=== PATIENT | male | born 1955 | race American Indian/Alaskan Native ===

== ENCOUNTER 2017-01-08 11:11 | Emergency (ER) | payer MEDICAID, MEDICARE ==
[2017-01-08 11:27] VITALS: BP 137/85
[2017-01-08] MEDS ORDERED: MOTRIN PO ONE (13:48)
[2017-01-08] MEDS ORDERED: TRIPLE ANTIBIOTIC TP ONE (13:50)
--- NOTE | 2017-01-09 12:17 | Emergency Department Report ---
Entered by DEEPALI RIOS, acting as scribe for CARMEL SROIANO NP. - General Chief Complaint: Extremity Injury, Lower Stated Complaint: LFT FOOT PAIN Source: patient Mode of arrival: Ambulatory Limitations: No Limitations - History of Present Illness Initial Comments: 61 year old male with no significant PMHx presents to the ED c/o a wound on he left plantar foot between his 3rd and 4th phalanges that began 2 months. Patient states that 2 months ago on a job site a natural gas pipe busted and his boot was submerged in water for the rest of the day. Later that night, he noticed a blister and "popped" it, which released fluid and blood. Patient states that he has been self treating his wound at home with no relief. Denies fever, chills, nausea, vomiting, loss of feeling, tingling, and numbness. Reports that he was recently checked by PCP for diabetes and had negative results. Last visit with PCP was last month and stated all normal lab values, including DM. Stated that he is healthy and is not d/x with any medical problems. Denied receiving tetanus shot during this visit. Onset/Timin -: month(s) Location: other (left plantar foot between 3rd and 4th phalanges) Extremity Location: Left: Foot (plantar between 3rd and 4th phalanges) Place: home Patient Tetanus UTD: No Associated Symptoms: pain (left plantar foot). denies: loss of feeling/numbness , nausea/vomiting, fever, other (chills, tingling) - Related Data Previous Rx's Medication Instructions Recorded Last Taken Type Cephalexin [Keflex] 500 mg PO Q12HR #10 cap 01/08/17 Unknown Rx Naproxen [Naprosyn TAB] 500 mg PO PRN PRN #15 tablet 01/08/17 Unknown Rx Allergies Allergy/AdvReac Type Severity Reaction Status Date / Time No Known Allergies Allergy Unverified 01/08/17 13:59 ED Review of Systems Comment: All other systems reviewed and negative Constitutional: denies: chills, fever, other (loss of feeling, tingling) Eyes: denies: eye pain, eye discharge, vision change ENT: denies: ear pain, throat pain Respiratory: denies: cough, orthopnea, shortness of breath, SOB with exertion Cardiovascular: denies: chest pain, palpitations, dyspnea on exertion, orthopnea Gastrointestinal: denies: nausea, vomiting Musculoskeletal: other (left foot pain). denies: back pain Skin: other (wound on left plantar foot between 3rd and 4th phalanges) Neurological: denies: headache, weakness, numbness Psychiatric: denies: anxiety, depression Hematological/Lymphatic: denies: easy bleeding, easy bruising ED Past Medical Hx - Past Medical History Previous Medical History?: No - Surgical History Past Surgical History?: No - Social History Smoking Status: Never Smoker Substance Use Type: None - Medications Home Medications: Home Medications Medication Instructions Recorded Confirmed Last Taken Type Cephalexin [Keflex] 500 mg PO Q12HR #10 cap 01/08/17 Unknown Rx Naproxen [Naprosyn TAB] 500 mg PO PRN PRN #15 tablet 01/08/17 Unknown Rx ED Physical Exam - General Limitations: No Limitations General appearance: alert, in no apparent distress - Head Head exam: Present: atraumatic, normocephalic - Eye Eye exam: Present: normal appearance - ENT ENT exam: Present: normal exam, mucous membranes moist - Neck Neck exam: Present: normal inspection, full ROM - Respiratory Respiratory exam: Present: normal lung sounds bilaterally. Absent: respiratory distress, wheezes, rales, rhonchi, stridor - Cardiovascular Cardiovascular Exam: Present: regular rate, normal rhythm. Absent: normal heart sounds, systolic murmur, diastolic murmur, rubs, gallop - GI/Abdominal GI/Abdominal exam: Present: soft. Absent: distended - Extremities Exam Extremities exam: Present: normal inspection, full ROM, tenderness (left plantar foot tenderness) - Expanded Lower Extremity Exam Left Hip exam: Present: normal inspection, full ROM. Absent: tenderness, swelling Upper Leg exam: Present: normal inspection, full ROM. Absent: tenderness, swelling Knee exam: Present: normal inspection, full ROM, full knee extension. Absent: tenderness, swelling, erythema, pain w/ pronation/supination, posterior draw sign Lower Leg exam: Present: normal inspection, full ROM. Absent: tenderness, swelling Ankle exam: Present: normal inspection, full ROM. Absent: tenderness, swelling Foot/Toe exam: Present: full ROM, tenderness (left plantar foot tenderness between 3rd and 4th phalanges), erythema (minimal). Absent: normal inspection ( left plantar foot open wound between 3rd and 4th phalanges), swelling, abrasion , laceration, ecchymosis, deformity, dislocation, puncture wound, foreign body, tenderness at base of 5th metatarsal Neuro vascular tendon exam: Present: no vascular compromise. Absent: pulse deficit, abnormal cap refill, motor deficit, sensory deficit, tendon deficit, pallor - Back Exam Back exam: Present: normal inspection, full ROM - Neurological Exam Neurological exam: Present: alert, oriented X3 - Psychiatric Psychiatric exam: Present: normal affect, normal mood - Skin Skin exam: Present: warm, dry, intact, other (wound on left plantar foot) ED Course Vital Signs 01/08/17 11:25 Temperature 98.5 F Pulse Rate 64 Respiratory 16 Rate Blood Pressure 137/85 O2 Sat by Pulse 100 Oximetry ED Medical Decision Making - Medical Decision Making Ed course: 61 male that presents with skin tag between the left third and fourth phalanges 1- prescribed ibuprofen for pain. 2- cleaned the wound with normal saline. Applied Neosporin. Sterile dressing applied with tape. 3- instruct the patient to follow up with the retail merchandiser technician in 2 or 3 days for possible biopsy. 4- prescribed Keflex. 5- at this time the patient does not seem toxic or ill appearance. 6-instructed the patient to keep area clean, and wash affected area with antibacterial soap. 7- at this time the patient understands treatment plan and discharge instructions. No further questions this time. ED Disposition Clinical Impression: Skin tag, Open wound Disposition: DISCHARGED TO HOME OR SELFCARE Is pt being admited?: No Does the pt Need Aspirin: No Condition: Stable Instructions: Antibacterial (Single Agent) (On the skin) Additional Instructions: Please follow up with primary care doctor in 5 days. Please follow up with the retail merchandiser technician in 2-3 days. If any symptoms of numbness, tingling, redness, swelling is reported by the emergency room. Keep area clean, and wash with antibacterial soap. Please finish full course of antibiotics. Prescriptions: Cephalexin [Keflex] 500 mg PO Q12HR #10 cap Naproxen [Naprosyn TAB] 500 mg PO PRN PRN #15 tablet PRN Reason: Pain Referrals: PRIMARY MD CINDI [Primary Care Provider] - 3-5 Days [facility] [Outside] - 3-5 Days [facility] [Outside] - 3-5 Days WINNIE TRAN MD [Staff Physician] - 2-3 Days This documentation as recorded by the GABRIEL patel JASMINE,accurately reflects the service I personally performed and the decisions made by me,CARMEL SORIANO, BRYSON.
== END 2017-01-08 14:00 | disposition home or self-care (01) ==
LOC: ED 11:11
DX: L91.8 Other hypertrophic disorders of the skin (principal)
CPT/HCPCS: 99283; A6250